=== PATIENT | female | born 1990 | race Caucasian/White ===

== ENCOUNTER 2016-09-19 12:41 | Observation (INO) | payer BC, MEDICAID ==
[~2016-09-19] VITALS: Ht 167.6 cm; Wt 82.0 kg
--- NOTE | ~2016-09-19 | HP ---
PATIENT'S NAME: PINA SARAVIA [facility] AGE: 26 Y [address] ROOM: [place] [address] LOCATION: [facility] ADMIT DATE: 09/19/2016 History & Physical DISCHARGE DATE: 09/19/2016 FAMILY PHYSICIAN: RAJESH KATE MD ATTENDING PHYSICIAN: RAJESH KATE DATE OF SERVICE: HISTORY OF PRESENT ILLNESS: The patient is a 26-year-old, G2, P1-0-0-1, who presented to [facility] this a.m. with complaints of vaginal bleeding. The patient endorsed recent episode of intercourse. The patient describes a one time episode of vaginal bleeding, trickling down her leg early this a.m. with passage of clot at that time. She has noticed some bleeding with wiping since then, but has not had any since arrival here per nursing staff. The patient had some pink spotting with wiping after using the restroom here, but does not had any active vaginal bleeding. In discussion with the outside referring provider, there was concern for active bleeding coming from the cervical os. The patient was not complaining of any contractions at that time. She had an AmniSure performed, which was positive. She was transferred here for further evaluation due to prematurity. The patient currently denies any abdominal tightening or contractions. She denies any loss of fluid. She reports positive movement. PAST MEDICAL HISTORY: Negative. PAST SURGICAL HISTORY: Significant for one prior section in 2012 for heart rate decelerations. ORDER ENTRY CLERK HISTORY: The patient is a G2, P1-0-0-1, currently at approximately 24 weeks gestational age with an LMP of 04/05/2016. has been complicated by history of 1 prior as well as tobacco abuse. She has had, otherwise, normal labs and is Rh positive. She had a normal anatomy scan on August 25 with an anterior placenta. SOCIAL HISTORY: Significant for tobacco use approximately 7 to 8 cigarettes a day. Denies any alcohol or drug use. She lives with her and almost 4-year-old son. FAMILY HISTORY: Noncontributory. PATIENT'S NAME: PINA SARAVIA [facility] AGE: 26 Y [address] ROOM: [place] [address] LOCATION: [facility] ADMIT DATE: 09/19/2016 History & Physical DISCHARGE DATE: 09/19/2016 FAMILY PHYSICIAN: RAJESH KATE MD ATTENDING PHYSICIAN: RAJESH KATE REVIEW OF SYSTEMS: Negative except as noted above. PHYSICAL EXAMINATION: VITAL SIGNS: Reviewed and are stable. GENERAL: On physical exam, she appears awake alert and oriented. Does not appear in any acute distress. HEART: Regular rate and rhythm. LUNGS: Clear to auscultation bilaterally. ABDOMEN: Gravid appropriate for gestational age. EXTREMITIES: No cyanosis or edema. PELVIC: Speculum cervix appears visually closed. She has a small amount of mucus present at the os with no active bleeding noted. There is no active bright red blood in the vagina and some dark blood is present. It is very small in amount. Cervix is digitally closed, long and high as well. On bedside ultrasound, fetus is in breech presentation with feet at near the cervix. Placenta appears to be well away from the cervix and is anterior. There is not appear to be any active clot present over the cervix. As stated above, again patient is Rh positive and had a normal hemoglobin at her outside facility. This was not repeated here. ASSESSMENT AND PLAN: This is a 26-year-old, G2, P1-0-0-1, at approximately 24 weeks gestational age with an episode of vaginal bleeding this a.m. following intercourse: 1. Intrauterine . status reassuring. heart tones are appropriate for gestational age. She has had some irritability on toco, but no regular contractions. The patient denies any feelings of contractions here. Vaginal bleeding, the patient is Rh positive. Does not require RhoGAM. Discussed with the patient and her that it is common in to have vaginal bleeding after intercourse. I do not see any concerning exam findings. She does not have a placenta previa. It does not appear to have signs of abruption at this time. I feel that she can be monitored for several hours. If she remains stable, she could be discharged to home later this afternoon. The patient already has a followup scheduled with Dr. Matthews on Tuesday of this week. Bleeding precautions were reviewed with her. We will continue to follow and see how she does this afternoon and possibly discharge to home. RAJESH KATE MD GT/lorenal PATIENT'S NAME: PINA SARAVIA [facility] AGE: 26 Y [address] ROOM: [place] [address] LOCATION: [facility] ADMIT DATE: 09/19/2016 History & Physical DISCHARGE DATE: 09/19/2016 FAMILY PHYSICIAN: RAJESH KATE MD ATTENDING PHYSICIAN: RAJESH KATE /[id number] D: [id number] T: [id number] HISTORY & PHYSICAL
[2016-09-19] MEDS ORDERED: PRENATAL 1+1)(P1 TAB PO (12:57)
== END 2016-09-19 16:50 | disposition disaster alternative care site (69) ==
LOC: GOBS 12:41 → GOBM 12:41 → GOBS 12:42 → GOBM 12:43 → GOBS 16:50
PROVIDERS: ADMIT Obstetrics & Gynecology
DX: O46.92 Antepartum hemorrhage, unspecified, second trimester (principal); F17.210 Nicotine dependence, cigarettes, uncomplicated; Z3A.23 23 weeks gestation of pregnancy; Z98.890 Other specified postprocedural states
CPT/HCPCS: G0463

== ENCOUNTER 2017-01-04 06:00 | Inpatient (IN) | payer MEDICAID ==
[~2017-01-04] VITALS: Ht 167.6 cm; Wt 136.0 kg
--- NOTE | ~2017-01-04 | OR ---
PATIENT'S NAME: PINA SARAVIA [facility] AGE: 26 Y [address] ROOM: [place] [id number] LOCATION: [facility] ADMIT DATE: 01/05/2017 OR/Procedure Report DISCHARGE DATE: FAMILY PHYSICIAN: , ANGEL ATTENDING PHYSICIAN: Sindy Matthews SURGEON: Sindy Matthews MD BINDERY ASSISTANT: DATE OF PROCEDURE: 01/05/2017 PREOPERATIVE DIAGNOSES: 1. Intrauterine at 39 weeks and 2 days. 2. Prior section. POSTOPERATIVE DIAGNOSES: 1. Intrauterine at 39 weeks and 2 days. 2. Prior section. 3. 2 cm uterine window. PROCEDURE: Repeat low-transverse section. BINDERY ASSISTANT SURGEON: Dr. Ravi. Dr. Ravi was necessary for adequate visualization of tissues and delivery of the fetus. ANESTHESIA: Spinal. ESTIMATED BLOOD LOSS: 500 mL. FINDINGS: Male infant, score 8 and 9. Weight is pending. A 2 cm uterine window. Normal tubes and ovaries. DRAINS: Cooley. SPECIMENS: None. COMPLICATIONS: None. INDICATIONS: This patient is a 26-year-old, -0-0-1 female, who presented for a scheduled repeat low transverse section with an uncomplicated . Prior to the procedure, the risks, benefits, and alternatives to the procedure were discussed with the patient. She understood the risks to be, but not be limited to, bleeding, infection, damage to the bowel, bladder, and surrounding organs and desired to proceed. DESCRIPTION OF PROCEDURE: The patient was taken to the operating room, where anesthesia was found to be adequate. She was prepped and draped in a dorsal PATIENT'S NAME: PINA SARAVIA [facility] AGE: 26 Y [address] ROOM: [place] [address] LOCATION: [facility] ADMIT DATE: 01/05/2017 OR/Procedure Report DISCHARGE DATE: FAMILY PHYSICIAN: PHYSICIAN, NO ATTENDING PHYSICIAN: Sindy Matthews supine position with leftward tilt. A Pfannenstiel skin incision was made, it was carried down through to the fascia. The fascia was incised. The fascial incision was extended. The rectus muscles were . The peritoneum was entered. There was noted to be a 2 cm uterine window that was extended and surgeon's hand was inserted into the uterus. The head was delivered. The rest of the fetus was delivered. The nose and mouth were bulb suctioned. The cord was clamped and cut. The infant was handed to the awaiting team. Cord blood was drawn. The placenta was delivered with manual traction. The uterus was exteriorized and cleared of clots and debris. It was repaired with 0 Vicryl in a running-locked fashion with an additional layer of imbricated 0 Vicryl suture. Hemostasis was noted. It was returned to the abdomen. The gutters were cleared of clots and debris. The fascia was repaired with 0 Vicryl in running fashion. Subcutaneous adipose tissue was hemostatic. Skin was closed with 4-0 suture and Steri-Strips were placed. COMPLICATIONS: None. CONDITION: Mom stable in room. Infant to nursery. MD CUONG STAHL/liza /[id number] d: 01/05/17906 t: 01/11/17 0739, OPERATIVE SUMMARY
[~2017-01-04 06:00] MED LIST: PRENATAL 1+1)(P1 TAB PO
[2017-01-05 06:24] LABS: BASOPHIL % 0.3 %; EOSINOPHIL # 0.2 K/uL (0.0-0.5); EOSINOPHIL % 1.8 %; HEMATOCRIT 38.9 % (33.0-46.0); HEMOGLOBIN 13.4 g/dL (11.0-15.0); IMMATURE GRANULOCYTE % 0.3 %; LYMPHOCYTE # 2.1 K/uL (0.8-4.0); LYMPHOCYTE % 21.2 %; MCH 31.3 pg (27.0-34.0); MCHC 34.4 gm/dL (32.0-36.5); MCV 90.9 fl (83.0-98.0); MONOCYTE # 0.8 K/uL (0.0-1.0); MONOCYTE % 8.2 %; MPV 11.5 fl (9.4-12.4); NEUTROPHIL # (ANC) 6.9 K/uL (1.8-7.8); NEUTROPHIL % 68.2 %; NRBC % 0 /100WBC (0-0.00); RBC 4.28 M/uL (3.50-5.00); RDW-CV 13.1 % (11.9-14.6); WBC 10.1 K/uL (4.0-11.0)
[2017-01-05 07:00] LABS: PLATELET COUNT 130 K/uL (150-450)
[2017-01-06 03:58] LABS: BASOPHIL % 0.3 %; EOSINOPHIL # 0.2 K/uL (0.0-0.5); EOSINOPHIL % 1.9 %; HEMATOCRIT 32.9 % (33.0-46.0); HEMOGLOBIN 11.4 g/dL (11.0-15.0); IMMATURE GRANULOCYTE % 0.3 %; LYMPHOCYTE # 1.7 K/uL (0.8-4.0); LYMPHOCYTE % 17.7 %; MCH 31.6 pg (27.0-34.0); MCHC 34.7 gm/dL (32.0-36.5); MCV 91.1 fl (83.0-98.0); MONOCYTE # 0.8 K/uL (0.0-1.0); MONOCYTE % 8.4 %; MPV 10.1 fl (9.4-12.4); NEUTROPHIL % 71.4 %; NRBC % 0 /100WBC (0-0.00); PLATELET COUNT 122 K/uL (150-450); RBC 3.61 M/uL (3.50-5.00); WBC 9.8 K/uL (4.0-11.0)
[2017-01-08] MEDS ORDERED: APNO TOP (15:44)
[2017-01-08] MEDS ORDERED: MOTRIN800 MG PO (15:45)
[2017-01-08] MEDS ORDERED: PERCOCET 5-3251 EACH PO (15:45)
[2017-01-08] MEDS ORDERED: LANSINOH7 GM TOP (15:45)
== END 2017-01-08 18:30 | disposition disaster alternative care site (69) | DRG 766 ==
LOC: GOBS 01-05 05:40
PROVIDERS: ADMIT Obstetrics & Gynecology
PROC: 10D00Z1 Extraction of Products of Conception, Low, Open Approach (ICD-10-PCS; principal; 2017-01-05)
DX: O34.211 Maternal care for low transverse scar from previous cesarean delivery (principal); Z37.0 Single live birth; Z3A.39 39 weeks gestation of pregnancy
CPT/HCPCS: J0690; J1885; J2001; J2270; J7120